=== PATIENT | female | born 1985 | race American Indian/Alaskan Native ===

== ENCOUNTER 2018-05-18 03:23 | Outpatient (CLI) | payer OTHER ==
[2018-05-18] MEDS ORDERED: LACTATED RINGERS 500 ML IV ONE (03:47)
[2018-05-18 04:43] VITALS: BP 122/62
[2018-05-18 04:59] LABS: Bilirubin,Urine NEG (Negative); Blood,Urine SM (Negative); Color,Urine Yellow (Yellow); Protein,Urine <15 mg/dL mg/dL (Negative); Urobilinogen,Urine < 2.0 mg/dL (<2.0)
[2018-05-18 05:06] LABS: Amphetamine Screen,Urine PRESUMPTIVE NEGATIVE; Benzodiazepines Screen,Urine PRESUMPTIVE NEGATIVE; Cocaine Screen,Urine PRESUMPTIVE NEGATIVE; Methadone Screen,Urine PRESUMPTIVE NEGATIVE; Opiate Screen,Urine PRESUMPTIVE NEGATIVE
[2018-05-18 05:19] LABS: Cannabinoid Screen,Urine PRESUMPTIVE POSITIVE
--- NOTE | 2018-05-18 06:43 | Ultrasound Report ---
PROCEDURE: US OB LIMITED TECHNIQUE: Real-time limited sonographic examination was performed for evaluation of placenta for ea ch fetus with image documentation (1 or more fetuses). HISTORY: R/O Abruption COMPARISONS: None . FINDINGS: Fetus is in a breech presentation. Placenta is posterior without evidence of previa or abruption. Placenta is grade 1. heart rate is 151 bpm. IMPRESSION: There is no placenta previa or abruption. This document is electronically signed by Krish Byrne MD., May 18 2018 06:41:41 AM ET
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
== END 2018-05-18 07:15 | disposition home or self-care (01) ==
LOC: TRG 03:23
PROVIDERS: ATTEND Obstetrics & Gynecology
DX: Z34.92 Encounter for supervision of normal pregnancy, unspecified, second trimester (principal); Z3A.26 26 weeks gestation of pregnancy
CPT/HCPCS: 59025; 76815; 80307; 81001; 86850; 86900; 86901